=== PATIENT | male | born 1980 | race American Indian/Alaskan Native ===

== ENCOUNTER 2018-06-05 07:01 | Emergency (ER) | payer SELFPAY ==
[2018-06-05 07:12] VITALS: O2SAT 99
[2018-06-05] MEDS ORDERED: MethylPREDNISolone 40 mg Vial IVP STA (07:44)
--- NOTE | 2018-06-05 07:59 | C.PDOC ---
History Of Present Illness 37-year-old male, presents to the emergency department with complaints of back pain. Patient had two cervical spine surgeries done in 08/29 for herniated disc.He comes in today with complaints of upper and lower back pain that has been ongoing since surgery. Patient states he has not followed up with surgeon who did it. He described pain as burning, starting in his neck and radiating down. He also notes pain in his chest that has been going on for the past three weeks. He denies any numbness/weakness, nausea/vomiting, fever, chills, dizziness, shortness of breath, or any other associated symptoms. No other complaints at this time. Time Seen by Provider: 06/05/18 07:22 Chief Complaint (Nursing): Back Pain History Per: Patient History/Exam Limitations: no limitations Onset/Duration Of Symptoms: Days Current Symptoms Are (Timing): Still Present Past Medical History Reviewed: Historical Data, Nursing Documentation, Vital Signs Vital Signs: Last Vital Signs Temp 98.2 F 06/05/18 07:07 Pulse 82 06/05/18 07:07 Resp 17 06/05/18 07:07 BP 120/88 06/05/18 07:07 Pulse Ox 99 06/05/18 08:01 Surgical History: Back Surgery (plates and screws) Family History: States: No Known Family Hx - Social History Hx Alcohol Use: Yes Hx Substance Use: No - Immunization History Hx Tetanus Toxoid Vaccination: Yes Hx Influenza Vaccination: No Hx Pneumococcal Vaccination: No Review Of Systems Constitutional: Negative for: Fever, Chills Cardiovascular: Positive for: Chest Pain Respiratory: Negative for: Shortness of Breath Gastrointestinal: Negative for: Nausea, Vomiting Musculoskeletal: Positive for: Neck Pain, Back Pain Neurological: Negative for: Weakness, Numbness, Headache, Dizziness Physical Exam - Physical Exam Appears: Non-toxic, No Acute Distress Skin: Normal Color, Warm, Dry, No Rash Head: Atraumatic, Normacephalic Eye(s): bilateral: Normal Inspection, PERRL, EOMI Nose: Normal Oral Mucosa: Moist Lips: Normal Appearing Neck: Normal ROM, No Midline Cervical Tenderness, Paracervical Tenderness, No Step Off Deformity Chest: Symmetrical Cardiovascular: Rhythm Regular, No Murmur Respiratory: Normal Breath Sounds, No Accessory Muscle Use Gastrointestinal/Abdominal: Soft, No Tenderness Back: Normal Inspection, Paraspinal Tenderness (Lumbar) Extremity: Normal ROM, No Deformity, No Swelling Neurological/Psych: Oriented x3, Normal Speech ED Course And Treatment - Laboratory Results Result Diagrams: 06/05/18 08:16 06/05/18 08:16 O2 Sat by Pulse Oximetry: 99 (RA) Pulse Ox Interpretation: Normal Medical Decision Making Medical Decision Makin - patient reevaluated and states improvement. heart score = 0 patient xray demonstrates constipation. advised patient he must follow up with his orthopaedic for neck and back pain. will discharge home will recommend ortho web production assistant just in case if patient has difficulties gaining an appointment. Disposition Counseled Patient/Family Regarding: Studies Performed, Diagnosis, Need For Followup, Rx Given - Disposition Referrals: Channing Garcia MD [Staff Provider] - Disposition: HOME/ ROUTINE Disposition Time: 09:20 Condition: IMPROVED Additional Instructions: follow up with your orthopaedic or recommended orthopaedic within 2 days call to make an appointment take medication as needed for constipation and muscle pain follow up with your family doctor in 2 days return to hospital if symptoms worsens or progress Prescriptions: Naproxen [Naprosyn] 500 mg PO BID PRN #16 tab PRN Reason: Pain, Moderate (4-7) Polyethylene Glycol 3350 [Miralax] 17 gm PO DAILY PRN #10 packet PRN Reason: Constipation Instructions: Muscle and Bone Pain (DC), Costochondritis (DC), Constipation, Adult (DC) Forms: [facility] (Lux[place]ish), General Discharge Instructions - Clinical Impression Clinical Impression: Low back pain, Constipation, Chest wall pain - Scribe Statement The provider has reviewed the documentation as recorded by the Scribe (Jason Singh) All medical record entries made by the Scribe were at my direction and personally dictated by me. I have reviewed the chart and agree that the record accurately reflects my personal performance of the history, physical exam, medical decision making, and the department course for this patient. I have also personally directed, reviewed, and agree with the discharge instructions and disposition.
[2018-06-05] MEDS ORDERED: MethylPREDNISolone 40 mg Vial ONE (08:07)
--- NOTE | 2018-06-05 08:10 | RAD ---
Date of service: 06/05/2018 HISTORY: SOB COMPARISON: No prior. TECHNIQUE: Chest PA and lateral FINDINGS: LUNGS: No active pulmonary disease. PLEURA: No significant pleural effusion identified. No pneumothorax apparent. CARDIOVASCULAR: Normal. OSSEOUS STRUCTURES: Anterior cervical fusion hardware partially visualize. Thoracic spine slightly convex towards the left. VISUALIZED UPPER ABDOMEN: Normal. OTHER FINDINGS: None. IMPRESSION: No active disease.
--- NOTE | 2018-06-05 08:12 | RAD ---
Date of service: 06/05/2018 PROCEDURE: Radiographs of the Lumbar Spine. HISTORY: back pain COMPARISON: No prior. FINDINGS: BONES: Normal alignment. No listhesis. No fracture. DISC SPACES: Unremarkable. OTHER FINDINGS: Right sacroiliac mild sclerotic and cystic arthrosis. Moderate stool retention -right colon especially. Moderately distended. IMPRESSION: No fracture or subluxation appreciated. Other findings -as above.
--- NOTE | 2018-06-05 08:14 | RAD ---
Date of service: 06/05/2018 PROCEDURE: Cervical Spine Radiographs. HISTORY: Pain. COMPARISON: None. FINDINGS: BONES: Straightening of the normal cervical lordosis present. No subluxation apparent. No fracture. Dens Intact. Anterior spondylosis C5-6 and C6-7. DISC SPACES: C6-7 interbody bone plugs with anterior cervical fusion hardware present no fracture or hardware failure appreciated. SOFT TISSUES: Normal. No prevertebral soft tissue swelling. OTHER FINDINGS: None. IMPRESSION: No fracture or subluxation appreciated. Cervical spondylosis and postop changes-as above.
[2018-06-05 08:23] LABS: BASO # 0.1 K/uL (0.0-0.2); EOS # 0.5 K/uL (0.0-0.7); EOS % 4.5 % (0.0-4.0); HEMOGLOBIN 13.6 g/dL (12.0-18.0); LYMPH # 2.9 K/uL (1.0-4.3); LYMPH % 28.3 % (20.0-40.0); MEAN CELL VOLUME 92.9 fL (80.0-94.0); MEAN CORPUSCULAR HEMOGLOBIN 31.8 pg (27.0-31.0); MEAN CORPUSCULAR HGB CONC 34.2 g/dL (33.0-37.0); MEAN PLATELET VOLUME 7.3 fL (7.2-11.7); MONO # 0.7 K/uL (0.0-0.8); MONO % 6.5 % (0.0-10.0); NEUT # 6.1 K/uL (1.8-7.0); NEUT % 59.7 % (50.0-75.0); NRBC % 0.1 % (0.0-2.0); RBC 4.28 Mil/uL (4.40-5.90); RED CELL DISTRIBUTION WIDTH 13.9 % (11.5-14.5); WHITE BLOOD COUNT 10.2 K/uL (4.8-10.8)
[2018-06-05 08:36] LABS: ALB/GLOB RATIO 1.5 (1.0-2.1); ALBUMIN 4.6 g/dL (3.5-5.0); ALT/SGPT 24 U/L (21-72); AST/SGOT 21 U/L (17-59); BLOOD UREA NITROGEN 10 mg/dL (9-20); CALCIUM 9.3 mg/dl (8.6-10.4); GFR AFRICAN-AMERICAN > 60; GFR NON-AFRICAN AMERICAN > 60
[2018-06-05 10:16] VITALS: BP 129/85; PULSE 72; RESP 16; TEMP 98.6
--- NOTE | 2018-06-06 21:29 | CARD ---
APPROVED REPORT Date of service: 06/05/2018 EKG Measurement Heart [id number] <Conclusion> Normal sinus rhythm Moderate voltage criteria for LVH, may be normal variant Borderline ECG
== END 2018-06-05 10:15 | disposition home or self-care (01) ==
LOC: C.ER 07:01
DX: M54.5 Low back pain (principal); K59.00 Constipation, unspecified; R07.89 Other chest pain
CPT/HCPCS: 71046; 72040; 72100; 80053; 82550; 84484; 85025; 93005; 96374; 96375; 99285; J1885; J2920